=== PATIENT | female | born 1940 | race Caucasian/White ===

== ENCOUNTER 2017-09-09 21:12 | Inpatient (IN) ==
[2017-09-09] MEDS ORDERED: ONDANSETRON 4 MG/2 ML INJECTION IVP PRN (22:02)
[2017-09-09] MEDS ORDERED: ALBUTEROL 2.5mg/3ml (0.083%) NEB AEROSOL PRN (22:03)
[2017-09-09] MEDS ORDERED: POLYETHYL GLYCOL 3350 17gm PACKET PO PRN (22:03)
[2017-09-09] MEDS ORDERED: MAG-AL + SIM ORAL LIQUID 30ml PO PRN (22:03)
[2017-09-09] MEDS ORDERED: ENOXAPARIN 40 MG/0.4 ML INJECTION SQ SCH (22:05)
[2017-09-09] MEDS ORDERED: NS 1,000 ML IV SCH (22:15)
--- NOTE | 2017-09-09 23:18 | History & Physical Report ---
History of Present Illness Date: 09/10/17 Chief complaint: weak HPI: This is a 77 y/o female who lives in [facility] who had onset of cough and shortness of breath that started about 24 hours ago. The patient reports subjective fever, chills and sweats. Because of her persistent cough the patient presents to the ED in [facility] where a CXR demonstrates an early right lower lobe infiltrate. The patient has a history of atrial fibrillation and is on pradaxa and currently being treated for lung carcinoma (s/p right lower lobe lobectomy with lymph node removal). The patient's workup in [place] demonstrated early pneumonia and the patient felt like she needed admission and wanted admitted in [place] where her PCP practiced. The patient was not hypoxic. The patient's vitals were stable. The patient's wBC not significantly elevated. Regardless the decision was made to transfer to [place] where she could be further cared for. Review of Systems Review of systems: mild headache, congestion, ear fullness, mild sore throat, no neck pain, cough non productive, fever, chills and sweats as noted above, no chest pain, hx of atrial fibrillation but does not feel like heart is beating fast, no abdomen pain, slight nausea without emesis. patient with chronic diarrhea from chemo but no change, no skin rashes, previous hx of CVA with atrial fib but no focal deficits residue and no change today. 12 point ROs otherwise negative except for outlined above. 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 Surgical History: right lower lobe lobectomy, cholecystectomy - Social History Smoking status: Never smoker Substance use type: does not use Alcohol intake frequency: does not drink Housing: house Household members: family service: No Current occupational status: retired Current occupational exposures/hazards: No Does patient use chewing tobacco?: No Current residence: Apartment/Private Home Medications Home Medications Medication Instructions Recorded Confirmed Type LORazepam [Lorazepam] 0.5 mg PO TID PRN #0 05/27/11 09/09/17 History Levothyroxine Sodium 137 mcg PO DAILY #0 05/27/11 09/09/17 History Cholecalciferol (Vitamin D3) 2,000 unit PO DAILY #0 10/16/12 09/09/17 History (Vitamin D) Acetaminophen [Tylenol Extra 500 mg PO PRN #0 10/17/12 09/09/17 History Strength] Dabigatran Etexilate Mesylate 150 mg PO BID #0 cap 01/26/14 09/09/17 History [Pradaxa] Flecainide Acetate 50 mg PO BID #0 tab 01/26/14 09/09/17 History Atorvastatin Calcium 40 mg PO HS #30 06/30/15 09/09/17 History Labetalol HCl 100 mg PO DAILY #0 06/30/15 09/09/17 History Potassium Chloride [K-Dur] 1 tab PO BID #60 06/30/15 09/09/17 History Citalopram Hydrobromide 1 tab PO DAILY #0 tab 07/18/15 09/09/17 History [Citalopram HBr] Furosemide 1 tab PO BID #0 tab 07/18/15 09/09/17 History Afatinib Dimaleate [Gilotrif] 20 mg PO DAILY 09/09/17 09/09/17 History Allergies Allergy/AdvReac Type Severity Reaction Status Date / Time morphine Allergy Severe SEVERE Verified 09/10/17 08:53 NAUSEA ondansetron Allergy Severe Rash Verified 09/10/17 08:57 [From Zofran (as hydrochloride)] Exam Vital Signs: Temperature 98.2 F 09/09/17 22:45 Pulse Rate 67 09/09/17 22:45 Respiratory Rate 20 09/09/17 22:45 Blood Pressure 126/59 09/09/17 22:45 Pulse Oximetry 94 09/09/17 22:45 Telemetry Rhythm: Sinus Rhythm - Constitutional Present: mild distress, well nourished, well developed, average body habitus, cooperative - Routine HEENT Exam Head: Present: normocephalic, atraumatic Eye: Present: PERRL, conjunctivae pink. Absent: conjunctival icterus, scleral injection ENT: Present: mucous membranes dry - Routine Neck Exam Present: supple - Routine Respiratory Exam Comments: bibasilar rales with occasional wheeze - Routine Cardiovascular Exam Present: RRR, no murmur - Routine Abdominal Exam Present: soft, normoactive bowel sounds, non distended, non tender - Routine Extremities Exam Present: no edema, non tender, full ROM - Routine Skin Exam Present: intact - Routine Neurological Exam Present: CN II-XII intact. Absent: sensory deficit, altered mental status - Routine Psychiatric Exam Present: normal affect, normal thought process Results - Labs CBC & Chem 7: 09/09/17 22:30 09/09/17 22:30 - Imaging and Cardiology Chest x-ray Additional comments: per outside xray right lower lobe infiltrate, changed from may x ray Assessment and Plan (1) Community acquired pneumonia Current visit: Yes Status: Acute (2) 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 Current visit: Yes Status: Acute (3) Atrial fibrillation Current visit: Yes Status: Acute (4) Hypothyroid Current visit: Yes Status: Acute (5) History of CVA (cerebrovascular accident) Current visit: Yes Status: Acute Assessment and Plan: 1. community acquired pneumonia acute POA: rocephin, zithromax, gentle hydration, repeat labs in the am. cx ordered. 2. hyperglycemia acute POA: repeat in am, no history of diabetes. if continued elevated in lab in the am check A1C 3. atrial fibrillation chronic POA: continue pradaxa. on b ever, on flecanide. sounds sinus on exam. no inidcatin for tele for now. 4. hx of lung carcinoma chronic POA: s/p partial pneumonectomy (RLL) on oral chemo. 5. previous hx CVA chronic POA: no residue deficits. related to atrial fib. to be aware of 6. hypothyroid chronic POA: continue synthroid 7. DVT ppx; SCD, pradaxa full inpatient admission. I have reviewed and agree with the H&P above by Dr. Gross. Please see my additions below Chief complaint: Cough, shortness of breath History of present illness: Patient is a pleasant 77-year-old female with history of lung carcinoma stage IV which is currently well controlled on Gilotrif with Dr. Overton. She states she started having a dry cough about one week ago and then yesterday on the day of admission had worsening cough, rhinorrhea, sore throat, and shortness of breath with severe cough. She also developed chest pain only with severe coughing. She checked her temperature yesterday and it was 100.9. She went to the emergency room in [place] and was thought to have right lower lung field pneumonia and was started on azithromycin and Rocephin. She was given a breathing treatment and stated that seem to help. She has not been hypoxic. She coughed up some clear phlegm today. Today she states she feels about the same as yesterday. Comprehensive review of systems: she has rhinorrhea, sore throat, ear congestion. She has some epistaxis off and on from dry nose and anticoagulation. She feels lightheaded often if she gets up too quickly. She has frequent diarrhea from chemotherapy. She takes Imodium if she is having frequent loose stools. She has a fungal rash in her right groin for which she is using topical medication. She has history of a stroke and has some mild confusion since that time. She also states her vision is poor when she is tired ever since her stroke. Past medical history, surgical history, social history, medications, reviewed and agree. She did state that with her lung resection she did not have cancer at that time. Lung resection was 3-4 years ago. He was later diagnosed with stage IV lung cancer DPOA is her daughter Halima Madera. Patient is full code. Family history is significant for multiple members with diabetes, her dad had liver cancer and when she was 15. Physical exam Patient is alert and oriented 3 and in no acute distress. HEENT reveals sclerae to be anicteric, pupils are equal round and reactive, oropharynx is moist with pharyngeal erythema. Neck is supple without lymphadenopathy. Chest reveals wheezing in all 4 lung duran. Cardiovascular reveals a regular rate and rhythm without murmur. Abdomen is soft and nontender with positive bowel sounds. Extremities are free of edema. Skin is warm and dry and without rashes. Lab from yesterday is reviewed. Impression Community-acquired pneumonia Possible upper respiratory infection as well Reactive airways Stage IV lung cancer on chemotherapy Atrial fibrillation history, currently in sinus rhythm Chronic anticoagulation Chronic diarrhea thought to be secondary to chemotherapy History of CVA Plan Recheck chest x-ray now. Check viral respiratory panel. Start DuoNeb breathing treatments. Continue azithromycin and Rocephin for now. PT and OT consult. Restart atorvastatin. Continue to hold chemotherapy. Recheck labs tomorrow. DVT Prophylaxis: SCD's, Pradaxa Resuscitation Status: Full Code - Time spent with patient Time with patient PN: 30 minutes Hospital Course Summary Disclaimer: The visit summary below is not to be considered part of the above Progress Note.
[2017-09-09] MEDS: CEFTRIAXONE 2 GM INJECTION IV SCH (23:50)
[2017-09-10] MEDS: FLECAINIDE 50 MG TABLET PO SCH ×3 (01:10→21:18)
[2017-09-10] MEDS: LORazepam 0.5 MG TABLET PO PRN ×2 (01:10→22:12)
[2017-09-10] MEDS: AZITHROMYCIN IV 500 MG in NS 250ml 250 ML IV SCH ×2 (01:11→21:18)
[2017-09-10] MEDS: CEFTRIAXONE 2 GM INJECTION IV SCH (01:12)
[2017-09-10 01:43] VITALS: BMI 32.5
[2017-09-10] MEDS: LEVOTHYROXINE 137 MCG TABLET PO SCH (08:54)
[2017-09-10] MEDS: CITALOPRAM 20 MG TABLET PO SCH (08:54)
[2017-09-10] MEDS: LABETALOL 100 MG TABLET PO SCH (08:54)
[2017-09-10] MEDS: PANTOPRAZOLE 40 MG INJECTION IVP SCH (08:55)
--- NOTE | 2017-09-10 10:38 | XRay Report ---
Indication: cough, hx of right lobectomy, Procedure: XR chest 2V: Encounter: Initial Comparison: 12/28/2014, 03/27/2014 Technique: PA and lateral radiographs of the chest were obtained. Findings: Lungs and airways: Normal lung volumes. No focal airspace consolidation. Normal pulmonary vasculature. Pleura: No pleural effusion or pneumothorax. Heart and mediastinum: Cardiomegaly. Aortic atherosclerosis. Osseous structures and soft tissues: No acute osseous abnormality is seen. Degenerative disc disease of the thoracic spine. Old right rib fractures. Impression: No acute cardiopulmonary process. .
[2017-09-10] MEDS: ALBUTEROL/IPRATROPIUM 2.5mg-0.5mg/3ml NEB AEROSOL SCH ×3 (11:57→20:19)
[2017-09-10] MEDS: NS FLUSH BAG 500ml IV PRN (15:58)
[2017-09-10] MEDS: SALINE FLUSH 10ml SYRINGE IV PRN ×2 (15:59→21:18)
[2017-09-10] MEDS: CEFTRIAXONE 1 G in NS 100 ML IV SCH (15:59)
[2017-09-10] MEDS: ACETAMINOPHEN 500 MG TABLET PO PRN (19:16)
[2017-09-10] MEDS: ATORVASTATIN 40 MG TABLET PO SCH (21:18)
[2017-09-11] MEDS: LEVOTHYROXINE 137 MCG TABLET PO SCH (05:45)
[2017-09-11] MEDS: BENZONATATE 200 MG CAPSULE PO PRN (05:45)
[2017-09-11] MEDS: ALBUTEROL/IPRATROPIUM 2.5mg-0.5mg/3ml NEB AEROSOL SCH ×4 (07:10→19:12)
[2017-09-11] MEDS: FLECAINIDE 50 MG TABLET PO SCH ×2 (08:36→21:40)
[2017-09-11] MEDS: PANTOPRAZOLE 40 MG INJECTION IVP SCH (08:37)
[2017-09-11] MEDS: LABETALOL 100 MG TABLET PO SCH (08:37)
[2017-09-11] MEDS: CITALOPRAM 20 MG TABLET PO SCH (08:37)
--- NOTE | 2017-09-11 13:22 | Progress Note ---
- Date 09/11/17 Subjective: The patient is seen today accompanied by her daughter Iveth. Patient states that she feels short of breath when she has a coughing fit. She continues to have a nonproductive cough and rhinorrhea. She continues to have wheezing. She denies any pain. She denies any nausea or vomiting. She is eating and drinking okay. She had 3 episodes of diarrhea yesterday but none today. She is urinating okay. She has had no fevers. Objective Vital signs: Temperature 97.8 F 09/11/17 00:00 Pulse Rate 72 09/11/17 08:00 Respiratory Rate 20 09/11/17 11:43 Blood Pressure 158/82 H 09/11/17 08:00 Pulse Oximetry 93 09/11/17 11:43 Height/Weight/BMI: Height 1.73 m Weight 98 kg Body Mass Index 32.5 Comments: GEN-alert, oriented, no acute distress HEENT-sclera anicteric, oropharynx is moist NECK-supple CV-regular rate and rhythm CHEST-expiratory wheezes in all 4 lung duran ABD-soft, nontender with positive bowel sounds -no Vernon EXT-no edema NEURO-no focal deficits SKIN-warm and dry and without rashes Results - Labs CBC & Chem 7: 09/11/17 04:02 09/11/17 04:01 Labs: Viral respiratory panel done yesterday was negative Blood cultures from [facility] are negative after 12 hours Microbiology Results: Microbiology 09/10/17 08:23 Urine Legionella Urinary Antigen - Final - Impressions Chest x-ray yesterday showed no acute cardiopulmonary abnormalities Assessment and Plan (1) Community acquired pneumonia Current visit: Yes Status: Acute (2) 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 Current visit: Yes Status: Acute (3) Atrial fibrillation Current visit: Yes Status: Acute (4) Hypothyroid Current visit: Yes Status: Acute (5) History of CVA (cerebrovascular accident) Current visit: Yes Status: Acute Assessment and Plan: Impression Community-acquired pneumonia-initial chest x-ray in [place] showed pneumonia, chest x-ray initially here shows no obvious infiltrate Hypoxia Reactive airways Stage IV lung cancer on chemotherapy Atrial fibrillation history, currently in sinus rhythm Chronic anticoagulation-on Pradaxa Chronic diarrhea thought to be secondary to chemotherapy History of CVA Hypokalemia Plan Recheck chest x-ray today. Start prednisone 40 mg daily for reactive airways. Continue breathing treatments. Add Mucinex for cough. Continue Tessalon Perles. Continue Rocephin and azithromycin for presumed pneumonia Continue to hold chemotherapy Recheck CBC, pro-calcitonin and BMP tomorrow 40 mEq oral potassium 1 today. Hospital Course Summary Disclaimer: The visit summary below is not to be considered part of the above Progress Note. Hospital Course: 09/10/2017 Impression Community-acquired pneumonia Possible upper respiratory infection as well Reactive airways Stage IV lung cancer on chemotherapy Atrial fibrillation history, currently in sinus rhythm Chronic anticoagulation Chronic diarrhea thought to be secondary to chemotherapy History of CVA Plan Recheck chest x-ray now. Check viral respiratory panel. Start DuoNeb breathing treatments. Continue azithromycin and Rocephin for now. PT and OT consult. Restart atorvastatin. Continue to hold chemotherapy. Recheck labs tomorrow.
[2017-09-11] MEDS: PredniSONE 20 MG TABLET PO SCH (13:41)
--- NOTE | 2017-09-11 15:07 | XRay Report ---
INDICATION: wheezing, cough PROCEDURE: CHEST 2-VIEWS UPRIGHT (PA & LAT) Encounter: Initial COMPARISON: September 10, 2017 FINDINGS: New retrocardiac airspace opacity which probably is in the left lower lobe with blunting of the costophrenic angles seen on the lateral view. Upper lung duran are clear. No pneumothorax. Small effusions. Heart size and mediastinal contours are stable. Pulmonary vascularity is unchanged. Old right rib fractures. Impression: New small pleural effusions with left lower lobe atelectasis or developing pneumonia. .
[2017-09-11] MEDS: CEFTRIAXONE 1 G in NS 100 ML IV SCH (16:05)
[2017-09-11] MEDS: ATORVASTATIN 40 MG TABLET PO SCH (21:40)
[2017-09-11] MEDS: GUAIFENESIN LA 600 MG TABLET PO SCH (21:41)
[2017-09-11] MEDS: AZITHROMYCIN IV 500 MG in NS 250ml 250 ML IV SCH (21:41)
[2017-09-11] MEDS: LORazepam 0.5 MG TABLET PO PRN (21:42)
[2017-09-11] MEDS: NS FLUSH BAG 500ml IV PRN (21:42)
[2017-09-11] MEDS: SALINE FLUSH 10ml SYRINGE IVF PRN (21:46)
[2017-09-12] MEDS: LEVOTHYROXINE 137 MCG TABLET PO SCH (06:24)
[2017-09-12] MEDS: ALBUTEROL/IPRATROPIUM 2.5mg-0.5mg/3ml NEB AEROSOL SCH ×4 (07:05→19:22)
[2017-09-12] MEDS: LABETALOL 100 MG TABLET PO SCH (08:55)
[2017-09-12] MEDS: FLECAINIDE 50 MG TABLET PO SCH ×2 (08:55→20:45)
[2017-09-12] MEDS: CITALOPRAM 20 MG TABLET PO SCH (08:56)
[2017-09-12] MEDS: FUROSEMIDE 40 MG TABLET PO SCH ×2 (08:56→20:46)
[2017-09-12] MEDS: GUAIFENESIN LA 600 MG TABLET PO SCH ×2 (08:57→20:46)
[2017-09-12] MEDS: PredniSONE 20 MG TABLET PO SCH (08:58)
[2017-09-12] MEDS: PANTOPRAZOLE 40 MG INJECTION IVP SCH (08:59)
[2017-09-12] MEDS ORDERED: SORE THROAT SPRAY 20ml PO PRN (14:03)
--- NOTE | 2017-09-12 14:07 | Progress Note ---
- Date 09/12/17 Subjective: The patient states her cough and wheezing are about the same. She denies shortness of breath except with coughing. She denies any chest pain or abdominal pain. She is eating and drinking okay. She is having bowel movements. Her face feels flushed and looks a little red. She denies pruritus. Objective Vital signs: Temperature 98.7 F 09/12/17 07:30 Pulse Rate 77 09/12/17 09:59 Respiratory Rate 20 09/12/17 11:16 Blood Pressure 164/91 H 09/12/17 09:59 Pulse Oximetry 92 09/12/17 11:16 Height/Weight/BMI: Height 1.73 m Weight 97.6 kg Body Mass Index 32.5 Comments: Weight is 97.6 kg and is essentially stable GEN-alert, oriented, no acute distress HEENT-sclera anicteric, oropharynx reveals some mild pharyngeal erythema without exudates or ulcers NECK-supple CV-regular rate and rhythm CHEST-mild wheezing, mild coarse breath sounds especially in the bases. The patient is not able to take any deep inspirations without having coughing spasms ABD-soft, nontender with positive bowel sounds -no Vernon EXT-no edema NEURO-no focal deficits SKIN-warm and dry. Her cheeks appear mildly erythematous/flushed down to her jaw bilaterally. No erythema or rashes seen elsewhere. 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 Current visit: Yes Status: Acute (3) Atrial fibrillation Current visit: Yes Status: Acute (4) Hypothyroid Current visit: Yes Status: Acute (5) History of CVA (cerebrovascular accident) Current visit: Yes Status: Acute Assessment and Plan: Impression Community-acquired pneumonia-chest x-ray 09/11/2017 shows left lower lobe infiltrate versus atelectasis Hypoxia-improved today Reactive airways-still with quite a bit of wheezing, symptoms improved with breathing treatments per patient Stage IV lung cancer on chemotherapy Atrial fibrillation history, currently in sinus rhythm Chronic anticoagulation-on Pradaxa Chronic diarrhea thought to be secondary to chemotherapy History of CVA Hypokalemia Immunosuppression secondary to recent chemotherapy-currently on hold Hypertension with elevated blood pressure today Plan Prednisone started yesterday and she has a little less wheezing. Cough is not improving. We'll start Chloraseptic spray for sore throat Continue Rocephin and azithromycin for community-acquired pneumonia Continue to hold chemotherapy Continue labetalol for hypertension. Restart Lasix and potassium. Recheck blood pressure. The patient does not appear ready for discharge today, especially in light of her pneumonia and immunosuppression with recent chemotherapy. Hospital Course Summary Disclaimer: The visit summary below is not to be considered part of the above Progress Note. Hospital Course: 09/10/2017 Impression Community-acquired pneumonia Possible upper respiratory infection as well Reactive airways Stage IV lung cancer on chemotherapy Atrial fibrillation history, currently in sinus rhythm Chronic anticoagulation Chronic diarrhea thought to be secondary to chemotherapy History of CVA Plan Recheck chest x-ray now. Check viral respiratory panel. Start DuoNeb breathing treatments. Continue azithromycin and Rocephin for now. PT and OT consult. Restart atorvastatin. Continue to hold chemotherapy. Recheck labs tomorrow. 09/11/2017 Plan Recheck chest x-ray today. Start prednisone 40 mg daily for reactive airways. Continue breathing treatments. Add Mucinex for cough. Continue Tessalon Perles. Continue Rocephin and azithromycin for presumed pneumonia Continue to hold chemotherapy Recheck CBC, pro-calcitonin and BMP tomorrow 40 mEq oral potassium 1 today.
[2017-09-12] MEDS: ACETAMINOPHEN 500 MG TABLET PO PRN (14:29)
[2017-09-12] MEDS: CEFTRIAXONE 1 G in NS 100 ML IV SCH (16:04)
[2017-09-12] MEDS: ATORVASTATIN 40 MG TABLET PO SCH (20:45)
[2017-09-12] MEDS: LORazepam 0.5 MG TABLET PO PRN (22:13)
[2017-09-12] MEDS: AZITHROMYCIN IV 500 MG in NS 250ml 250 ML IV SCH (22:14)
[2017-09-12] MEDS: SALINE FLUSH 10ml SYRINGE IVF PRN (22:19)
[2017-09-13] MEDS: LEVOTHYROXINE 137 MCG TABLET PO SCH (05:52)
[2017-09-13] MEDS: BENZONATATE 200 MG CAPSULE PO PRN ×2 (05:52→16:48)
[2017-09-13] MEDS: ALBUTEROL/IPRATROPIUM 2.5mg-0.5mg/3ml NEB AEROSOL SCH ×4 (06:54→19:17)
[2017-09-13] MEDS: FLECAINIDE 50 MG TABLET PO SCH ×2 (09:23→21:30)
[2017-09-13] MEDS: FUROSEMIDE 40 MG TABLET PO SCH ×2 (09:23→21:31)
[2017-09-13] MEDS: PredniSONE 20 MG TABLET PO SCH (09:23)
[2017-09-13] MEDS: GUAIFENESIN LA 600 MG TABLET PO SCH ×2 (09:24→21:29)
[2017-09-13] MEDS: SALINE FLUSH 10ml SYRINGE IVF PRN ×2 (09:24→16:49)
[2017-09-13] MEDS: PANTOPRAZOLE 40 MG INJECTION IVP SCH (09:24)
[2017-09-13] MEDS: LABETALOL 100 MG TABLET PO SCH (09:24)
[2017-09-13] MEDS: CITALOPRAM 20 MG TABLET PO SCH (09:24)
[2017-09-13] MEDS: ACETAMINOPHEN 500 MG TABLET PO PRN (10:51)
--- NOTE | 2017-09-13 15:04 | Progress Note ---
<Angela Montana D - Last Filed: 09/13/17 14:59> - Date 09/13/17 Subjective: Dalila is feeling better, but is short of breath after her trip to the bathroom which caused a coughing fit. She's able to walk down the halls fairly well, but she becomes worn out and short of breath after coughing. She denies feeling dizzy. She denies chest pain but sometimes her ribs hurt when she coughs hard. She denies abdominal pain or nausea and states that she's been eating/drinking well. Objective Vital signs: Temperature 98.2 F 09/13/17 07:00 Pulse Rate 75 09/13/17 07:00 Respiratory Rate 18 09/13/17 10:23 Blood Pressure 175/91 H 09/13/17 07:00 Pulse Oximetry 92 09/13/17 10:45 Height/Weight/BMI: Height 1.73 m Weight 96.9 kg Body Mass Index 32.5 - Constitutional Present: no acute distress, obese - Routine HEENT Exam Head: Present: normocephalic ENT: Present: mucous membranes moist, oropharynx clear - Routine Respiratory Exam Present: wheezes Comments: coarse breath sounds - Routine Cardiovascular Exam Present: RRR, S1, S2 - Routine Abdominal Exam Present: soft, normoactive bowel sounds, non distended, non tender - Routine Extremities Exam Present: no edema. 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 Current visit: Yes Status: Acute (3) Atrial fibrillation Current visit: Yes Status: Acute (4) Hypothyroid Current visit: Yes Status: Acute (5) History of CVA (cerebrovascular accident) Current visit: Yes Status: Acute Assessment and Plan: Impression Community-acquired pneumonia-chest x-ray 09/11/2017 shows left lower lobe infiltrate versus atelectasis Hypoxia-improved today Reactive airways-still with quite a bit of wheezing, symptoms improved with breathing treatments per patient Stage IV lung cancer on chemotherapy Atrial fibrillation history, currently in sinus rhythm Chronic anticoagulation-on Pradaxa Chronic diarrhea thought to be secondary to chemotherapy History of CVA Hypokalemia Immunosuppression secondary to recent chemotherapy-currently on hold Hypertension with elevated blood pressure today Plan Continues to have wheezing and cough - continue prednisone, nebs, and abx. Likely dc home with Rx for nebulizer and DuoNeb with her dx of pneumonia, bronchospasm, and underlying lung cancer. BP still elevated - Lasix was restarted yesterday. Poss dc home soon. One dtr lives a few blocks away from her in [place]; Dalila also has a life alert if needed. DVT Prophylaxis: Pradaxa GI Prophylaxis: Protonix Resuscitation Status: Full Code Hospital Course Summary Disclaimer: The visit summary below is not to be considered part of the above Progress Note. Hospital Course: 09/10/2017 Impression Community-acquired pneumonia Possible upper respiratory infection as well Reactive airways Stage IV lung cancer on chemotherapy Atrial fibrillation history, currently in sinus rhythm Chronic anticoagulation Chronic diarrhea thought to be secondary to chemotherapy History of CVA Plan Recheck chest x-ray now. Check viral respiratory panel. Start DuoNeb breathing treatments. Continue azithromycin and Rocephin for now. PT and OT consult. Restart atorvastatin. Continue to hold chemotherapy. Recheck labs tomorrow. 09/11/2017 Plan Recheck chest x-ray today. Start prednisone 40 mg daily for reactive airways. Continue breathing treatments. Add Mucinex for cough. Continue Tessalon Perles. Continue Rocephin and azithromycin for presumed pneumonia Continue to hold chemotherapy Recheck CBC, pro-calcitonin and BMP tomorrow 40 mEq oral potassium 1 today. 09/12/17 Prednisone started yesterday and she has a little less wheezing. Cough is not improving. We'll start Chloraseptic spray for sore throat Continue Rocephin and azithromycin for community-acquired pneumonia Continue to hold chemotherapy Continue labetalol for hypertension. Restart Lasix and potassium. Recheck blood pressure. The patient does not appear ready for discharge today, especially in light of her pneumonia and immunosuppression with recent chemotherapy 09/13/17 Continues to have wheezing and cough - continue prednisone, nebs, and abx. Likely dc home with Rx for nebulizer and DuoNeb with her dx of pneumonia, bronchospasm, and underlying lung cancer. BP still elevated - Lasix was restarted yesterday. Poss dc home soon. One dtr lives a few blocks away from her in [place]; Dalila also has a life alert if needed. 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 We discussed and formulated the assessment and plan as above with the additions below.-Dr. Lowe Patient was seen in her room this afternoon accompanied by her daughter. O2 sat is currently 88% on room air. She continues to have intermittent cough and wheezing, especially when she is talking or walking. Blood pressure is elevated at 181 systolic. She denies any pain. On exam she is alert and in no acute distress. Chest reveals mild expiratory wheezes throughout. Deep inspiration causes a hacking cough. Cardiovascular reveals a regular rate and rhythm. Abdomen is soft with positive bowel sounds Lab today shows potassium of 3.5 Impression and plan Hypoxia-give O2 as needed, RT to do ambulatory oximetry tomorrow Recheck chest x-ray regarding pneumonia. Continue Rocephin and Zithromax, currently day 5 Continue breathing treatments regarding reactive airways disease with wheezing. Continue oral prednisone for wheezing. Hopefully hypoxia will be better tomorrow and the patient be discharged soon. Discussed with the patient, her daughter and case management. Patient will need a nebulizer at home for albuterol and Atrovent breathing treatments. Hospital Course Summary Disclaimer: The visit summary below is not to be considered part of the above Progress Note.
[2017-09-13] MEDS ORDERED: AMLODIPINE 2.5 MG TABLET PO ONE (15:45)
--- NOTE | 2017-09-13 16:33 | XRay Report ---
INDICATION: cough, pneumonia, hypoxia PROCEDURE: CHEST 2-VIEWS UPRIGHT (PA & LAT) Encounter: Initial COMPARISON: September 11, 2017 FINDINGS: Aeration of the left lower lobe has improved with a small amount of airspace disease remaining. This is best seen on the lateral view with less density overlying the lower thoracic spine. Left pleural effusion has decreased. No new or worsening airspace disease. No pneumothorax. Heart size and mediastinal contours are stable. Impression: Improving aeration of the left lower lobe. .
[2017-09-13] MEDS: CEFTRIAXONE 1 G in NS 100 ML IV SCH (16:49)
[2017-09-13] MEDS: LORazepam 0.5 MG TABLET PO PRN (21:31)
[2017-09-13] MEDS: ATORVASTATIN 40 MG TABLET PO SCH (21:32)
[2017-09-13] MEDS: AZITHROMYCIN IV 500 MG in NS 250ml 250 ML IV SCH (21:33)
[2017-09-14] MEDS: LEVOTHYROXINE 137 MCG TABLET PO SCH (05:31)
[2017-09-14] MEDS: ALBUTEROL/IPRATROPIUM 2.5mg-0.5mg/3ml NEB AEROSOL SCH ×3 (06:30→14:40)
[2017-09-14 06:59] VITALS: BP 133/71; TEMP 97.7
[2017-09-14] MEDS: PredniSONE 20 MG TABLET PO SCH (07:58)
[2017-09-14] MEDS: FLECAINIDE 50 MG TABLET PO SCH (07:59)
[2017-09-14] MEDS: FUROSEMIDE 40 MG TABLET PO SCH (07:59)
[2017-09-14] MEDS: LABETALOL 100 MG TABLET PO SCH (08:00)
[2017-09-14] MEDS: CITALOPRAM 20 MG TABLET PO SCH (08:00)
[2017-09-14] MEDS: GUAIFENESIN LA 600 MG TABLET PO SCH (08:00)
[2017-09-14] MEDS ORDERED: LOSARTAN 100 MG TABLET PO SCH (09:00)
[2017-09-14 09:01] VITALS: PULSE 82
--- NOTE | 2017-09-14 14:41 | Discharge Summary ---
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 Status: Acute (3) Atrial fibrillation Status: Acute DISCHARGE DIAGNOSES & ASSOCIATED CONDITIONS Community-acquired pneumonia Hypoxia - resolved Reactive airways - improved Hypokalemia CHRONIC CONDITIONS Stage IV lung cancer on chemotherapy Immunosuppression secondary to recent chemotherapy - currently on hold Chronic diarrhea thought to be secondary to chemotherapy Atrial fibrillation history, currently in sinus rhythm Chronic anticoagulation-on Pradaxa History of CVA Hypertension - Laboratory Labs: 09/13/17 04:16 09/13/17 04:16 - Microbiology Microbiology 09/10/17 08:23 Urine Legionella Urinary Antigen - Final History of Present Illness HPI: Patient is a pleasant 77-year-old female with history of lung carcinoma stage IV which is currently well controlled on Gilotrif with Dr. Overton. She states she started having a dry cough about one week ago and then yesterday on the day of admission had worsening cough, rhinorrhea, sore throat, and shortness of breath with severe cough. She also developed chest pain only with severe coughing. She checked her temperature yesterday and it was 100.9. She went to the emergency room in [place] and was thought to have right lower lung field pneumonia and was started on azithromycin and Rocephin. She was given a breathing treatment and stated that seem to help. She has not been hypoxic. She coughed up some clear phlegm today. Objective Vital signs: Temperature 97.7 F 09/14/17 06:57 Pulse Rate 82 09/14/17 08:30 Respiratory Rate 16 09/14/17 11:00 Blood Pressure 133/71 09/14/17 06:57 Pulse Oximetry 93 09/14/17 11:00 Height/Weight/BMI: Height 1.73 m Weight 96.1 kg Body Mass Index 32.5 - Constitutional Present: no acute distress, well nourished, well developed, obese - Routine HEENT Exam Head: Present: normocephalic Eye: Present: PERRL. Absent: conjunctival icterus, scleral injection ENT: Present: mucous membranes moist, oropharynx clear - Routine Respiratory Exam Present: CTA bilaterally - Routine Cardiovascular Exam Present: RRR, S1, S2 - Routine Abdominal Exam Present: soft, normoactive bowel sounds, non distended, non tender - Routine Extremities Exam Present: edema (trace BLE) - Routine Skin Exam Present: intact, dry, warm - Routine Neurological Exam Present: alert, oriented X3, normal speech - Routine Psychiatric Exam Present: normal affect, normal thought process, cooperative Hospital Course This is a general summary of the patient's hospital course. For more details refer to the complete medical record. Hospital course: Dalila was admitted to [facility] on 09/10/17 for CAP. She was started on azithromycin and Rocephin, and also was started on routine DuoNeb treatments. She had persistent wheezing, and prednisone was started on 09/11/17. Her wheezing gradually improved, and by 09/14/17 she was no longer wheezing. She required intermittent periods of supplemental oxygen, but was on room air on the day of discharge. Viral respiratory panel was negative. Labs were monitored daily - CBC remained stable. She had mild declines in potassium, requiring extra oral replacement. On day of discharge her K was still slightly low at 3.5, and took an extra 20 mEq. By 09/14/17 she was feeling significantly better, and was medically stable for discharge home. This was discussed with Dr. Overton's office - they will contact her next week to set up an appointment. Dr. Overton wants to evaluate her before resuming her chemotherapy. A nebulizer was approved by insurance and was delivered to her home. She will pick out hand Rx for Albuterol. In addition, Rx Vantin was provided for 4 more days to complete a 10- day course of antibiotics. She was instructed to monitor for signs of thrush. She lives close by one of her daughters, who is a med aid and helps out if Dalila needs it. Dalila also has a life alert, and isn't bashful about using it if necessary. She should f/u with Dr. Orozco in a week. Recommend to have CBC and BMP repeated prior to that appointment. Discharge instructions were discussed with Dalila and she felt comfortable with the discharge plan. Time spent with patient: discharge greater than 30 minutes DVT Prophylaxis: Pradaxa Discharge Plan - Discharge Disposition Discharge Date: 09/14/17 Disposition: Discharged Home, Self-Care *Condition: Stable Reason For Visit (Visit label in EMR): pneumonia - Discharge Medications *Discharge Medications: New Albuterol Neb (0.083%) [Proventil Neb (0.083%)] 2.5 mg AEROSOL RTQID PRN #1 box PRN Reason: Shortness Of Air/Wheezing Guaifenesin LA [Mucinex LA] 600 mg PO BID PRN tab PRN Reason: Cough predniSONE [Prednisone] 20 mg PO DAILY #3 tab Benzonatate [Tessalon Perles] 200 mg PO TID PRN #20 cap PRN Reason: Cough Cefpodoxime [Vantin] 200 mg PO BID #8 tab Continue Levothyroxine Sodium 137 mcg PO DAILY #0 LORazepam [Lorazepam] 0.5 mg PO TID PRN #0 PRN Reason: ANXIETY Acetaminophen [Tylenol Extra Strength] 500 mg PO PRN #0 Furosemide 1 tab PO BID #0 tab CloNIDine [Catapres] 1 tab PO BID Afatinib Dimaleate [Gilotrif] 20 mg PO DAILY #0 Cholecalciferol (Vitamin D3) (Vitamin D) 2,000 unit PO DAILY #0 Dabigatran Etexilate Mesylate [Pradaxa] 150 mg PO BID #0 cap Flecainide Acetate 50 mg PO BID #0 tab Labetalol HCl 100 mg PO DAILY #0 Atorvastatin Calcium 40 mg PO HS #30 Potassium Chloride [K-Dur] 1 tab PO BID #60 Citalopram Hydrobromide [Citalopram HBr] 1 tab PO DAILY #0 tab Losartan [Cozaar] 100 mg PO DAILY Hydralazine [Apresoline] 25 mg PO BID PRN PRN Reason: Hypertension - Discharge Packet/Instructions *Diet: Regular *Activity: No restrictions. Activity as tolerated. *Pain Management/Treatment: Tylenol as needed. *Wound Care: N/A *Expected Signs/Symptoms: You might feel a little weak and tired from your hospitalization. You may feel short of breath or wheeze occasionally - use your nebulizer if needed to help with breathing. You may have a cough for several more days, and you can take Tessalon Perles or Mucinex for that. Monitor for thrush; also pay attention to your bowel movements (if you have diarrhea, you may need to be tested for C. difficile). *Notify Physician if: Fever, increased shortness of breath, chest pain, dizziness or feeling like you might pass out, confusion, vomiting or diarrhea, stroke-like symptoms, or any new concerns *During Business Hours Contact: Dr. Orozco's or Dr. Overton's office *After Business Hours Contact: The on-call provider for [facility] or [facility] *Pending Lab/Results: No Pending Lab Outpatient Orders: BMP - Basic Metabolic - AMS Time Frame: 5 Days, Location: Determined By Patient CBC w Auto Diff-AMS Time Frame: 5 Days, Location: Determined By Patient - Referrals/Follow Up *Referrals/Follow Up: Raul Overton MD [Physician] - 1 Week (Dr. Overton 09/20/17 at 9:50 draw labs on 09/19/17 ) Jose Orozco MD [Family Provider] - 1 Week (Dr. Orozco , booked until end of month. Left message and they will call patient with appointment date and time.) - Patient Handouts Patient Handouts: Pneumonia (GEN) - Dismissal Complete Discharge Instructions are:: Complete <Nikko Montes - Last Filed: 09/14/17 17:42> Discharge Information Date of admission: 09/09/17 22:25 Attending Physician: Ashley Lowe MD Primary care physician: Jose Orozco MD Consults: 09/10/17 08:00 Physician Consult [CONS] Routine Consulting Provider: Raul Overton I Reason For Exam: oncology Ordering Provider has Notified Lithographic Press Operator: No - Discharge Diagnosis (1) Community acquired pneumonia Status: Acute (2) 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 Status: Acute (3) Atrial fibrillation Status: Acute DISCHARGE DIAGNOSES & ASSOCIATED CONDITIONS Community-acquired pneumonia Hypoxia - resolved Reactive airways - improved Hypokalemia (Not present on admission) CHRONIC CONDITIONS Stage IV lung cancer on chemotherapy Immunosuppression secondary to recent chemotherapy - currently on hold Chronic diarrhea thought to be secondary to chemotherapy Atrial fibrillation history, currently in sinus rhythm Chronic anticoagulation-on Pradaxa History of CVA Hypertension - Laboratory Labs: 09/13/17 04:16 09/13/17 04:16 - Microbiology Microbiology 09/10/17 08:23 Urine Legionella Urinary Antigen - Final Objective Vital signs: Temperature 97.7 F 09/14/17 06:57 Pulse Rate 82 09/14/17 08:30 Respiratory Rate 18 09/14/17 14:41 Blood Pressure 133/71 09/14/17 06:57 Pulse Oximetry 92 09/14/17 16:00 Height/Weight/BMI: Height 1.73 m Weight 96.1 kg Body Mass Index 32.5 Hospital Course This is a general summary of the patient's hospital course. For more details refer to the complete medical record. Attestation Narriative - Attestation Attestation Narrative: 09/14/17 17:39 I have independently interviewed and examined patient prior to discharge. Case discussed with CM and my [employer]ESSMAKER. Care plan developed with my supervision; agree with above. Doing much better today. Breathing easier. Less cough and congestion. Strength improving. Moving more and better. No f/c. Lungs: decreased, no distress CV: regular AB: soft nt/nd MSE: awake alert appropriate Plan: Will discharge to home; medically stable. See orders for detail.
[2017-09-14 14:44] VITALS: RESP 18
[2017-09-14] MEDS ORDERED: CEFTRIAXONE 1 G in NS 100 ML IV ONE (14:53)
[2017-09-14] MEDS ORDERED: CEFPODOXIME 200mg TABLET PO ONE (15:18)
[2017-09-14 16:17] VITALS: O2SAT 92
== END 2017-09-14 16:50 | disposition home or self-care (01) | DRG 194 ==
LOC: SUATTDRO 22:25 → MED 22:25
PROVIDERS: ADMIT Emergency Medicine; ATTEND Internal Medicine